=== PATIENT | male | born 1995 | race Caucasian/White ===

== ENCOUNTER 2022-10-15 07:31 | Emergency (ER) | payer SELFPAY ==
[2022-10-15 07:40] VITALS: BP 131/94; PULSE 92; RESP 16; TEMP 36.8; O2SAT 98; BMI 23.0
[2022-10-15 08:53] LABS: Appearance Urine Clear (Clear); Bilirubin Urine Negative (Negative); Blood Urine Negative (Negative); Color Urine Yellow (Yellow); Glucose Urine Negative (Negative); Ketones Urine Negative (Negative); Leukocyte Esterase Urine Trace (Negative); Nitrite Urine Negative (Negative); Protein Urine Negative (Negative); Specific Gravity Urine 1.015 (1.000-1.030); Urobilinogen Urine 0.2 (0.2-1.0)
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
[2022-10-15 09:06] LABS: Amphetamine Screen Urine Negative (Negative); Barbiturate Screen Urine Negative (Negative); Benzodiazepines Screen Urine Negative (Negative); Cocaine Screen Urine Negative (Negative); Methadone Screen Urine Negative (Negative); Methamphetamines Screen Urine Negative (Negative); Opiate Screen Urine Negative (Negative); Oxycodone Screen Urine Negative (Negative); Phencyclidine Screen Urine Negative (Negative); Tricyclic Antidepressant Urine Negative (Negative)
[2022-10-15 09:15] LABS: Basophils Absolute Auto 0.02 K/uL (0.00-0.30); Basophils Percent Auto 0.3 % (0.0-3.0); Eosinophils Absolute Auto 0.11 K/uL (0.00-0.50); Eosinophils Percent Auto 1.8 % (0.0-7.0); Hematocrit 51.2 % (37.0-53.0); Hemoglobin* 18.2 gm/dL (13.5-17.5); Immature Granulocytes Abs Auto 0.02 K/uL (0.00-0.30); Immature Granulocytes Pct Auto 0.3 %; Lymphocytes Percent Auto 23.9 % (20-44); Mean Corpuscular HGB Conc 36 gm/dL (32-36); Mean Corpuscular Hemoglobin 33 pg (26-34); Mean Corpuscular Volume 94 fL (80-100); Neutrophils Absolute Auto 3.75 K/uL (1.7-7.0); Neutrophils Percent Auto 59.7 % (42.0-72.0); Platelet Count* 320 K/uL (140-440); RDW Coefficient of Variation % 12.8 % (11.5-15.5); Red Blood Count 5.45 m/uL (4.30-5.90); White Blood Count* 6.28 K/uL (4.50-11.00)
[2022-10-15 09:15] LABS: Cannabinoid Screen Urine POSITIVE (Negative)
[2022-10-15 09:16] LABS: Slide Review Reflex No
--- NOTE | 2022-10-15 09:30 | ED.NURSE ---
pt declined services. also declined taxi
[2022-10-15 09:34] LABS: Albumin* 5.1 g/dL (3.3-5.0); Chloride* 112 mmol/L (96-114); Sodium* 147 mmol/L (135-149)
[2022-10-15 09:35] LABS: Potassium* 3.3 mmol/L (3.6-5.1)
[2022-10-15 09:36] LABS: Amorphous Sediment Urine Few; Bacteria Urine Few; RBC Urine 0-2 (0-2); Squamous Epithelial Cell Urine Few (None-Few)
[2022-10-15 09:36] LABS: Creatinine* 0.7 mg/dL (0.5-1.5); Est. Creatinine Clearance* 159.84; Estimated Glomerular Filt Rate 128 ml/min
[2022-10-15 09:37] LABS: Alkaline Phosphatase* 135 U/L (40-150); Aspartate Amino Transferase* 106 U/L (12-35); Bilirubin Direct* 0.3 mg/dL (0.0-0.5); Bilirubin Total* 0.7 mg/dL (0.1-1.5); Blood Urea Nitrogen* 4 mg/dL (5-24); Carbon Dioxide* 21 mmol/L (20-32); Total Protein* 8.2 g/dL (6.0-8.3)
[2022-10-15 09:38] LABS: Alanine Aminotransferase* 139 U/L (4-50); Calcium* 8.7 mg/dL (8.4-10.6); Ethanol* 0.19 % (0.01-0.03); Glucose* 112 mg/dL (60-115)
[2022-10-15 09:42] LABS: Acetaminophen* < 10.0 ug/mL (10.0-30.0); C Reactive Protein* < 0.5 mg/dL (0.5-1.0)
== END 2022-10-15 09:32 | disposition home or self-care (01) ==
PROVIDERS: Emergency Provider Family Medicine
DX: F10.120 Alcohol abuse with intoxication, uncomplicated (principal); S01.21XA Laceration without foreign body of nose, initial encounter; W19.XXXA Unspecified fall, initial encounter
CPT/HCPCS: 36415; 80048; 80076; 80143; 80306; 81001; 82077; 85025; 86140; 87086; 99283